=== PATIENT | male | born 1985 | race African-American/Black ===

== ENCOUNTER 2019-06-23 23:31 | Emergency (ER) | payer OTHER ==
[2019-06-23] MEDS ORDERED: LIDOCAINE 1%/EPI 1:100,000 20 ML VIAL. ONE (23:59)
--- NOTE | 2019-06-24 00:34 | PHYS DOC ---
Past Medical History Past Medical History: Asthma Past Surgical History: No Surgical History Alcohol Use: None Drug Use: Other (K2) Adult General Chief Complaint Chief Complaint: MECHANICAL FALL HPI HPI Patient is a 34 year old AA male who presents to the ER via EMS in custody of [employer] officers with complaints of a laceration above his left eye, nausea, and vomiting. Guards at the bedside report that the patient coughed hard after smoking K2 and then passed out while standing and hit his head on a table. Pt has vomited at least twice since the fall. Per guards there was a brief LOC. Pt was placed in a c-collar and transported to the ER. On arrival pt denies any complaints of neck pain or head pain. He denies any complaints. Pt does not remember what happened. Pt reports his last tetanus immunization was less than 5 years ago. Review of Systems Review of Systems Constitutional: Denies fever or chills [] Eyes: Denies change in visual acuity, redness, or eye pain [] HENT: Denies nasal congestion or neck pain Respiratory: Denies cough or shortness of breath [] Cardiovascular: No additional information not addressed in HPI [] GI: Denies abdominal pain, or diarrhea; see HPI Musculoskeletal: Denies back pain or joint pain [] Integument: Denies rash; See HPI Neurologic: Denies headache, focal weakness or sensory changes [] Complete systems were reviewed and found to be within normal limits, except as documented in this note. Current Medications Current Medications Current Medications Medications (Trade) Dose Ordered Sig/Juaquin Start Time Stop Time Status Last Admin Dose Admin Lidocaine/ Epinephrine (LIDOCAINE 1%-EPI 1:100,000 Multi-Dose) 20 ml 1X ONCE 06/24/19 01:00 06/24/19 01:01 Neomycin/ Polymyxin/ Bacitracin (Triple Antibiotic Ointment) 1 pkt 1X ONCE 06/24/19 01:00 06/24/19 01:01 Allergies Allergies Allergies Coded Allergies Type Severity Reaction Last Updated Verified No Known Drug Allergies 06/24/19 No Physical Exam Physical Exam Constitutional: Well developed, well nourished, no acute distress, non-toxic appearance. [] HENT: Normocephalic, atraumatic, bilateral external ears normal, oropharynx moist, no oral exudates, nose normal. [] Eyes: PERRLA, EOMI, conjunctiva normal, no discharge. [] Neck: Normal range of motion, no bony tenderness, supple, no stridor. [] Cardiovascular:Heart rate regular rhythm Lungs & Thorax: respirations even and unlabored Abdomen: Bowel sounds normal, soft, no tenderness, no masses, no pulsatile masses. [] Skin: Warm, dry, no erythema, no rash; 2 cm laceration noted above left eye, no active bleeding. [] Back: No tenderness Extremities: No cyanosis, no clubbing, ROM intact, no edema. [] Neurologic: Alert and oriented X 3, normal motor function, normal sensory function, no focal deficits noted. [] Psychologic: Affect normal, judgement normal, mood normal. [] EKG EKG [] Radiology/Procedures Radiology/Procedures Laceration Repair by me: Anesthesia: 1% lidocaine locally with 1% epi Location: above left eye Tendon/Joint/Nerves: No injury Foreign body: None detected after copious irrigation and exploration Technique: 6 Simple Interrupted Sutures with 6-0 Ethilon Complexity: No subcutaneous sutures/mucosal repair/edge excision Post Closure Length: 2 cm Patient's bleeding was easily controlled in the department and there is no indication of anemia. No evidence of compartment syndrome, neurologic injury, vascular injury, open joint, tendon laceration, or foreign body. Patient is appropriate for outpatient follow up. PROCEDURE: CT HEAD WO CONTRAST CT head without contrast: Reason for examination: Fell. Axial images were obtained through the brain. No contrast was administered. Reconstruction was performed in coronal plane. Exposure: One or more of the following individualized dose reduction techniques were utilized for this examination: 1. Automated exposure control 2. Adjustment of the mA and/or kV according to patient size 3. Use of iterative reconstruction technique. Ventricular systems are symmetric and not dilated. No midline shift is seen. There is no evidence of intracranial hemorrhage, infarct, mass or edema. No abnormalities are seen at the orbits. The paranasal sinuses show minimal mucosal disease in the right and left ethmoid air cells. Remaining paranasal sinuses are clear. Mastoid air cells are clear. No acute abnormality seen in the skull. IMPRESSION: No acute intracranial abnormality evident. Course & Med Decision Making Course & Med Decision Making Pertinent Labs and Imaging studies reviewed. (See chart for details) [] Dragon Disclaimer Dragon Disclaimer This electronic medical record was generated, in whole or in part, using a voice recognition dictation system. Departure Departure Impression: Primary Impression: Laceration of face without complication Additional Impression: Closed head injury with brief loss of consciousness Disposition: 01 HOME, SELF-CARE Condition: STABLE Referrals: UNKNOWN PCP NAME (PCP) Patient Instructions: Facial Laceration, [id number], Head Injury, Adult, [id number] Additional Instructions: Keep the area clean and dry. Apply antibiotic ointment and a clean bandage twice daily. Sutures out in 5-7 days. You may take Tylenol or ibuprofen as needed for pain. Follow up with your primary care doctor in 1-2 days for reevaluation. Follow the head injury precautions given. Return to the ER if symptoms worsen. Problem Qualifiers Primary Impression: Laceration of face without complication Encounter type: initial encounter Qualified Codes: S01.81XA - Laceration without foreign body of other part of head, initial encounter BRIANDA MONTERO APRN Jun 24, 2019 00:34
--- NOTE | 2019-06-24 00:39 | RAD ---
CT head without contrast: Reason for examination: Fell. Axial images were obtained through the brain. No contrast was administered. Reconstruction was performed in coronal plane. Exposure: One or more of the following individualized dose reduction techniques were utilized for this examination: 1. Automated exposure control 2. Adjustment of the mA and/or kV according to patient size 3. Use of iterative reconstruction technique. Ventricular systems are symmetric and not dilated. No midline shift is seen. There is no evidence of intracranial hemorrhage, infarct, mass or edema. No abnormalities are seen at the orbits. The paranasal sinuses show minimal mucosal disease in the right and left ethmoid air cells. Remaining paranasal sinuses are clear. Mastoid air cells are clear. No acute abnormality seen in the skull. IMPRESSION: No acute intracranial abnormality evident. Electronically signed by: Angela Frost MD (06/24/2019 12:36 AM) [id number]
[2019-06-24] MEDS ORDERED: LIDOCAINE 1%/EPI 1:100,000 20 ML VIAL. SQ ONE (01:00)
[2019-06-24] MEDS ORDERED: NEOMY/BACITR/POLYMYXIN OINT PACKET. TP ONE (01:00)
== END 2019-06-24 01:10 | disposition home or self-care (01) ==
LOC: EEVIPCON 23:31 → ER 23:31
DX: S01.81XA Laceration without foreign body of other part of head, initial encounter (principal); S06.9X9A Unspecified intracranial injury with loss of consciousness of unspecified duration, initial encounter; R11.2 Nausea with vomiting, unspecified; J45.909 Unspecified asthma, uncomplicated; F12.20 Cannabis dependence, uncomplicated; W18.39XA Other fall on same level, initial encounter; Y93.89 Activity, other specified; Y92.149 Unspecified place in prison as the place of occurrence of the external cause; Y99.8 Other external cause status
CPT/HCPCS: 12011; 70450; 99284; J3490; 99283